=== PATIENT | male | born 1980 | race Caucasian/White ===

== ENCOUNTER → 2019-07-29 | Outpatient (CLI) | payer OTHER | LOC: CAT 09:28 | DX: Z13.6 Encounter for screening for cardiovascular disorders (principal); E78.00 Pure hypercholesterolemia, unspecified; I25.10 Atherosclerotic heart disease of native coronary artery without angina pectoris ==

== ENCOUNTER → 2019-09-29 | Outpatient (CLI) | payer OTHER | LOC: CAT 12:59 | DX: J34.89 Other specified disorders of nose and nasal sinuses (principal) ==

== ENCOUNTER 2021-06-17 11:04 | Emergency (ER) | payer OTHER ==
[~2021-06-17] VITALS: Ht 185.4 cm; Wt 80.3 kg
[2021-06-17 13:11] VITALS: BP 130/81
== END 2021-06-17 14:10 | disposition home or self-care (01) ==
LOC: ER 11:04
DX: Z20.3 Contact with and (suspected) exposure to rabies (principal)

== ENCOUNTER 2021-06-20 15:32 | Emergency (ER) | payer OTHER ==
[~2021-06-20] VITALS: Ht 185.4 cm; Wt 79.8 kg
[2021-06-20 15:36] VITALS: BP 124/86
== END 2021-06-20 16:14 | disposition home or self-care (01) ==
LOC: ER 15:32
DX: Z29.14 Encounter for prophylactic rabies immune globulin (principal)

== ENCOUNTER 2021-06-24 09:29 | Emergency (ER) | payer OTHER ==
[~2021-06-24] VITALS: Ht 185.4 cm; Wt 79.8 kg
[2021-06-24 09:33] VITALS: BP 140/88
== END 2021-06-24 10:05 | disposition home or self-care (01) ==
LOC: ER 09:29
DX: Z20.3 Contact with and (suspected) exposure to rabies (principal)

== ENCOUNTER 2021-07-07 09:35 | Emergency (ER) | payer OTHER ==
[~2021-07-07] VITALS: Ht 185.4 cm; Wt 79.8 kg
[2021-07-07 09:35] VITALS: BP 138/88
== END 2021-07-07 10:20 | disposition home or self-care (01) ==
LOC: ER 09:35
DX: Z23 Encounter for immunization (principal)

== ENCOUNTER → 2021-08-01 | Outpatient (CLI) | payer OTHER | LOC: CAT 07:56 | PROVIDERS: ATTEND Family Medicine | DX: Z13.6 Encounter for screening for cardiovascular disorders (principal); I25.10 Atherosclerotic heart disease of native coronary artery without angina pectoris; E78.00 Pure hypercholesterolemia, unspecified ==